=== PATIENT | female | born 1955 | race Caucasian/White ===

== ENCOUNTER 2017-12-08 07:35 | Outpatient (CLI) | payer OTHER ==
[~2017-12-08 07:35] MED LIST: ASPI-1265 PO; CYCL-1 PO; HYDR-569 PO; LISI-222 PO; MAGN100T6 PO; MULT-785 PO; MV-M1TAB19 PO; OMEG1CAP21 PO
[2017-12-08 08:13] LABS: ALANINE AMINOTRANSFERASE 65 U/L (12-78); ALBUMIN 3.8 G/DL (3.4-5.0); ALBUMIN/GLOBULIN RATIO 1.1 (1.1-1.5); ALKALINE PHOSPHATASE 51 IU/L (46-116); ANION GAP 6 (8-16); ASPARTATE AMINO TRANSFERASE 23 U/L (10-37); BILIRUBIN,TOTAL 0.5 MG/DL (0.1-1.0); BLOOD UREA NITROGEN 18 MG/DL (7-18); BUN/CREATININE RATIO 18.8 (6.6-38.0); CHLORIDE 106 MMOL/L (99-107); CHOL/HDL RATIO 3.9 (0.00-4.99); CHOLESTEROL 151 MG/DL (0-200); CREATININE 0.96 MG/DL (0.40-0.90); GLUCOSE 138 MG/DL (70-104); HDL CHOLESTEROL 39 MG/DL (35-60); LDL CHOLESTEROL 86 MG/DL (50-100); POTASSIUM 4.3 MMOL/L (3.5-5.1); SODIUM 140 MMOL/L (135-145); TOTAL CARBON DIOXIDE 27.9 MMOL/L (24-32); TOTAL PROTEIN 7.4 G/DL (6.4-8.2); TRIGLYCERIDES 169 MG/DL (20-135); eGFR 59 ML/MIN
== END 2017-12-08 23:59 | disposition home or self-care (01) ==
LOC: LAB 07:35
PROVIDERS: ATTEND Family Medicine
DX: I10 Essential (primary) hypertension (principal); E78.5 Hyperlipidemia, unspecified; R79.89 Other specified abnormal findings of blood chemistry
CPT/HCPCS: 36415; 80053; 80061; 83036

== ENCOUNTER 2018-02-22 07:26 | Outpatient (CLI) | payer OTHER | END 2018-02-22 23:59 | disposition home or self-care (01) | LOC: LAB 07:26 | PROVIDERS: ATTEND Nurse Practitioner Family | DX: R73.01 Impaired fasting glucose (principal) | CPT/HCPCS: 36415; 82947 ==

== ENCOUNTER 2018-10-24 09:01 | Emergency (ER) | payer OTHER ==
[~2018-10-24] VITALS: Ht 165.1 cm; Wt 79.5 kg
[~2018-10-24 09:01] MED LIST changes: +HYDR-4383 PO; -HYDR-569 PO
[2018-10-24] MEDS ORDERED: mag hydrox/Alum hydrox/simeth 30ml oral suspension PO ONE (09:20)
[2018-10-24] MEDS ORDERED: LIDOcaine Viscous 15ml cup PO ONE (09:20)
[2018-10-24] MEDS ORDERED: famotidine/PF 10 mg/ml inj IV ONE (09:20)
[2018-10-24] MEDS ORDERED: aspirin 325mg tablet PO ONE (09:20)
[2018-10-24 09:53] LABS: BASOPHILS % (AUTO) 0.6 % (0-1); EOSINOPHILS # (AUTO) 0.1 X10'3 (0-0.9); EOSINOPHILS % (AUTO) 0.9 % (0-6); HEMATOCRIT 43.6 % (35.0-45.0); HEMOGLOBIN 14.6 g/dl (12.0-16.0); LYMPHOCYTES # (AUTO) 2.3 X10'3 (1.1-4.8); LYMPHOCYTES % (AUTO) 30.5 % (21-51); MEAN CORPUSCULAR HGB CONC 33.4 % (33.0-36.5); MEAN PLATELET VOLUME 9.5 FL (7.4-10.4); MONOCYTES # (AUTO) 0.6 X10'3 (0-0.9); NEUTROPHILS # (AUTO) 4.7 X10'3 (1.8-7.7); PLATELET COUNT 190 X10'3 (140-440); RED BLOOD COUNT 4.55 X10'6 (4.20-5.60); WHITE BLOOD COUNT 7.7 X10'3 (4.5-11.0)
[2018-10-24 10:02] LABS: INR 1.3 INR; PARTIAL THROMBOPLASTIN TIME 27 SECONDS (22-32); PROTHROMBIN TIME 10.3 SECONDS (9.0-12.0)
[2018-10-24] MEDS ORDERED: iohexol 350MG/ML 100ml bottle IV ONE (10:02)
[2018-10-24 10:11] LABS: ALANINE AMINOTRANSFERASE 46 U/L (12-78); ALBUMIN 3.6 G/DL (3.4-5.0); ALKALINE PHOSPHATASE 51 IU/L (46-116); ANION GAP 11 (8-16); ASPARTATE AMINO TRANSFERASE 19 U/L (10-37); BILIRUBIN,TOTAL 0.5 MG/DL (0.1-1.0); BLOOD UREA NITROGEN 19 MG/DL (7-18); BUN/CREATININE RATIO 21.8 (6.6-38.0); CALCIUM 8.8 MG/DL (8.5-10.1); CHLORIDE 102 MMOL/L (99-107); CREATININE 0.87 MG/DL (0.40-0.90); GLUCOSE 137 MG/DL (70-104); LIPASE 315 U/L (73-393); SODIUM 138 MMOL/L (135-145); TOTAL CARBON DIOXIDE 24.6 MMOL/L (24-32); TOTAL PROTEIN 7.3 G/DL (6.4-8.2); eGFR 66 ML/MIN
[2018-10-24] MEDS ORDERED: ondansetron/PF 4mg/2ml inj IV ONE (10:40)
[2018-10-24] MEDS ORDERED: PANT20TA3 PO (11:07)
[2018-10-24] MEDS ORDERED: pantoprazole 40 MG vial IV ONE (11:10)
[2018-10-24 11:58] VITALS: BP 140/89
== END 2018-10-24 12:00 | disposition home or self-care (01) ==
LOC: ER 09:02
DX: R07.89 Other chest pain (principal); R10.13 Epigastric pain; R11.0 Nausea; I10 Essential (primary) hypertension; Z90.710 Acquired absence of both cervix and uterus; Z79.82 Long term (current) use of aspirin
CPT/HCPCS: 36415; 71045; 71275; 74174; 80053; 83690; 84484; 85025; 85610; 85730; 93005; 96374; 96375; 99284; C9113; J2405; J3490; Q9967

== ENCOUNTER 2018-12-28 09:25 | Day surgery (SDC) | payer OTHER ==
[~2018-12-28] VITALS: Ht 165.1 cm; Wt 77.3 kg
[~2018-12-28 09:25] MED LIST changes: +PANT20TA3 PO
[2018-12-28 09:37] VITALS: BP 142/84
[2018-12-28] MEDS ORDERED: MIDAZolam 5mg/5ml vial ONE (09:39)
[2018-12-28] MEDS ORDERED: fentaNYL/PF 50MCG/1 ML 2ML syringe ONE (09:39)
[2018-12-28] MEDS ORDERED: LIDOcaine Viscous 15ml cup ONE (09:39)
[2018-12-28] MEDS ORDERED: LISI-604 PO (09:40)
[2018-12-28] MEDS ORDERED: FLUO20CA39 PO (09:41)
[2018-12-28 10:10] VITALS: BP 148/75
[2018-12-28 10:20] VITALS: BP 136/85
[2018-12-28 10:30] VITALS: BP 129/83
[2018-12-28 10:40] VITALS: BP 140/86
== END 2018-12-28 10:45 | disposition home or self-care (01) ==
LOC: GI LAB 09:25
PROVIDERS: ATTEND Internal Medicine Gastroenterology
DX: K29.50 Unspecified chronic gastritis without bleeding (principal); K44.9 Diaphragmatic hernia without obstruction or gangrene; K22.10 Ulcer of esophagus without bleeding; K21.0 Gastro-esophageal reflux disease with esophagitis
CPT/HCPCS: 43239; J2250; J3010; J7030; 99152; A4620

== ENCOUNTER 2019-02-16 08:55 | Day surgery (SDC) | payer OTHER ==
[2019-02-13 15:33] LABS: ALBUMIN 3.9 G/DL (3.4-5.0); ALBUMIN/GLOBULIN RATIO 1.1 (1.1-1.5); ALKALINE PHOSPHATASE 63 IU/L (46-116); BLOOD UREA NITROGEN 22 MG/DL (7-18); BUN/CREATININE RATIO 24.7 (6.6-38.0); CALCIUM 9.3 MG/DL (8.5-10.1); CHLORIDE 101 MMOL/L (99-107); CREATININE 0.89 MG/DL (0.40-0.90); PRE OP ALT 56 U/L (30-65); PRE OP ANION GAP 9 (8-16); PRE OP BILIRUB, TOTAL 0.3 MG/DL (0.0-1.0); PRE OP SODIUM 139 MMOL/L (135-145); TOTAL CARBON DIOXIDE 29.4 MMOL/L (24-32); TOTAL PROTEIN 7.3 G/DL (6.4-8.2); eGFR 64 ML/MIN
[2019-02-13 15:38] LABS: PRE OP GLUCOSE 125 MG/DL (70-104); PRE OP POTASSIUM 4.3 MMOL/L (3.4-5.1)
[2019-02-13 15:43] LABS: BASOPHILS # (AUTO) 0.1 X10'3 (0-0.2); BASOPHILS % (AUTO) 0.9 % (0-1); EOSINOPHILS # (AUTO) 0.1 X10'3 (0-0.9); EOSINOPHILS % (AUTO) 1.6 % (0-6); LYMPHOCYTES % (AUTO) 27.7 % (21-51); MEAN CORPUSCULAR HEMOGLOBIN 33.2 PG (27.0-31.0); MEAN CORPUSCULAR HGB CONC 35.1 g/dL (33.0-36.5); MEAN CORPUSCULAR VOLUME 94.6 FL (78-98); MEAN PLATELET VOLUME 9.2 FL (7.4-10.4); MONOCYTES # (AUTO) 0.8 X10'3 (0-0.9); MONOCYTES % (AUTO) 11.3 % (2-12); NEUTROPHILS # (AUTO) 4.2 X10'3 (1.8-7.7); NEUTROPHILS % (AUTO) 58.5 % (42-75); PRE OP HEMATOCRIT 43.3 % (35.0-45.0); PRE OP HEMOGLOBIN 15.2 g/dL (12.0-16.0); PRE OP PLATELET COUNT 181 X10'3 (140-440); RED BLOOD COUNT 4.58 X10'6 (4.20-5.60); RED CELL DISTRIBUTION WIDTH 12.7 % (11.5-14.5)
[2019-02-13 16:06] LABS: PRE OP AST 19 U/L (10-37)
[2019-02-16] VITALS (8 sets, daily range): BP systolic 133–160; BP diastolic 72–96
[~2019-02-16] VITALS: Ht 165.1 cm; Wt 73.0 kg
[~2019-02-16 08:55] MED LIST changes: -ASPI-1265 PO; +ASPI-611 PO; +BUPIVAcaine/PF 2.5mg/ml (0.25%) 10ml vial ONE; -CYCL-1 PO; -HYDR-4383 PO; -LISI-222 PO; +LISI-604 PO; -MAGN100T6 PO; -PANT20TA3 PO; +ceFAZolin 1GM/D5W- ADD-VANTAGE 50 ML IV ONE; +famotidine 20mg tablet PO ONE; +ringers solution, lacted 1,000 ML IV SCH
[2019-02-16] MEDS ORDERED: LIDOcaine 0.5% (5mg/ml) 50ml vial ONE (10:01)
[2019-02-16] MEDS ORDERED: fentaNYL/PF 50MCG/1 ML 2ML syringe ONE (10:09)
[2019-02-16] MEDS ORDERED: midazolam 2 mg/2 ml injection ONE ×2 (10:09→10:27)
--- NOTE | 2019-02-16 10:50 | NUR ---
Received from OR via BED, accompanied by Anesthesiologist DR SAVAGE and report given by Anesthesiolgist. PATIENT A&OX4, DENIES PAIN, V/S WNL, NEUROVASCULAR CHECKS INTACT, 20G PIV RUE, SCD ON, DRESSING TO LEFT AND RIGHT WRIST CDI ELEVATED WITH ICEBAG APPLIED.
--- NOTE | 2019-02-16 11:17 | NUR ---
WRONG TIME, CORRECT ARRIVAL TIME IS 1050
--- NOTE | 2019-02-16 11:45 | NUR ---
PATIENT A&OX4, DENIES PAIN, V/S WNL, NEUROVASCULAR CHECKS INTACT, 20G PIV LUE D/C, SCD OFF, DRESSING TO RIGHT AND LEFT WRIST CDI ELEVATED WITH ICEBAG APPLIED. I HAVE REVIEWED D/C INSTRUCTIONS WITH PATIENT AND FAMILY AND THEY HAVE VERBALIZED UNDERSTANDING. PATIENT D/C HOME WITH ALL BELONGINGS AND FAMILY GAVE TRANSPORT HOME.
== END 2019-02-16 11:45 | disposition home or self-care (01) ==
LOC: PAS 08:55
PROVIDERS: ATTEND Orthopaedic Surgery Hand Surgery
DX: G56.03 Carpal tunnel syndrome, bilateral upper limbs (principal); M65.332 Trigger finger, left middle finger; I10 Essential (primary) hypertension; Z79.899 Other long term (current) drug therapy; Z90.710 Acquired absence of both cervix and uterus; Z82.49 Family history of ischemic heart disease and other diseases of the circulatory system; Z80.8 Family history of malignant neoplasm of other organs or systems
CPT/HCPCS: 26055; 29848; 36415; 80053; 85025; J0690; J2001; J2250; J3010; J3490; A6449; A7000; J7120

== ENCOUNTER 2020-01-09 09:30 | Outpatient (CLI) | payer OTHER ==
[~2020-01-09 09:30] MED LIST changes: -BUPIVAcaine/PF 2.5mg/ml (0.25%) 10ml vial ONE; -ceFAZolin 1GM/D5W- ADD-VANTAGE 50 ML IV ONE; -famotidine 20mg tablet PO ONE; -ringers solution, lacted 1,000 ML IV SCH
[2020-01-09 10:50] LABS: ALANINE AMINOTRANSFERASE 65 U/L (12-78); ALBUMIN 3.9 G/DL (3.4-5.0); ALBUMIN/GLOBULIN RATIO 1.1 (1.1-1.5); ALKALINE PHOSPHATASE 47 IU/L (46-116); ANION GAP 7 (8-16); ASPARTATE AMINO TRANSFERASE 30 U/L (10-37); BILIRUBIN,TOTAL 0.9 MG/DL (0.1-1.0); BLOOD UREA NITROGEN 16 MG/DL (7-18); BUN/CREATININE RATIO 17.2 (6.6-38.0); CALCIUM 9.3 MG/DL (8.5-10.1); CHLORIDE 103 MMOL/L (99-107); CHOL/HDL RATIO 3.6 (0.00-4.99); CHOLESTEROL 153 MG/DL (0-200); CREATININE 0.93 MG/DL (0.40-0.90); GLUCOSE 152 MG/DL (70-104); HDL CHOLESTEROL 42 MG/DL (35-60); LDL CHOLESTEROL 90 MG/DL (50-100); POTASSIUM 4.4 MMOL/L (3.5-5.1); SODIUM 137 MMOL/L (135-145); TOTAL CARBON DIOXIDE 27.1 MMOL/L (24-32); TOTAL PROTEIN 7.5 G/DL (6.4-8.2); TRIGLYCERIDES 180 MG/DL (20-135); eGFR 61 ML/MIN
[2020-01-09 11:43] LABS: HEMOGLOBIN A1C 6.8 % (4.5-6.2)
== END 2020-01-09 23:59 | disposition home or self-care (01) ==
LOC: LAB 09:30
PROVIDERS: ATTEND Nurse Practitioner Family
DX: I10 Essential (primary) hypertension (principal); R73.01 Impaired fasting glucose; R53.83 Other fatigue
CPT/HCPCS: 36415; 80053; 80061; 83036; 84443

== ENCOUNTER 2020-02-01 16:08 | Emergency (ER) | payer OTHER ==
[~2020-02-01] VITALS: Ht 165.1 cm; Wt 79.5 kg
[2020-02-01] MEDS ORDERED: dexamethasone 4mg tablet PO ONE (16:35)
[2020-02-01] MEDS ORDERED: ACYC-202 PO (16:51)
[2020-02-01] MEDS ORDERED: PRED20TA PO (16:51)
[2020-02-01 17:34] VITALS: BP 138/70
== END 2020-02-01 17:39 | disposition home or self-care (01) ==
LOC: EEVIPCON 16:08 → ER 16:08
DX: G51.0 Bell's palsy (principal); R51 Headache; I10 Essential (primary) hypertension; Z90.710 Acquired absence of both cervix and uterus; Z72.89 Other problems related to lifestyle; Z79.899 Other long term (current) drug therapy
CPT/HCPCS: 70450; 82948; 93005; 99284

== ENCOUNTER 2020-02-03 06:48 | Emergency (ER) | payer OTHER ==
[~2020-02-03] VITALS: Ht 165.1 cm; Wt 74.0 kg
[~2020-02-03 06:48] MED LIST changes: +ACYC-202 PO; +PRED20TA PO
[2020-02-03 06:51] VITALS: BP 139/79
[2020-02-03] MEDS ORDERED: amox tr/potassium clavulanate 875/125mg TAB PO ONE (07:20)
[2020-02-03] MEDS ORDERED: AMOX-117 PO (09:07)
== END 2020-02-03 09:16 | disposition home or self-care (01) ==
LOC: ER 06:49
DX: G51.0 Bell's palsy (principal); H66.92 Otitis media, unspecified, left ear; I10 Essential (primary) hypertension; Z90.710 Acquired absence of both cervix and uterus; Z72.89 Other problems related to lifestyle; Z79.82 Long term (current) use of aspirin; Z79.899 Other long term (current) drug therapy
CPT/HCPCS: 70480; 99284

== ENCOUNTER 2020-02-08 15:44 | Emergency (ER) | payer OTHER ==
[~2020-02-08] VITALS: Ht 165.1 cm; Wt 72.3 kg
[~2020-02-08 15:44] MED LIST changes: +AMOX-117 PO
[2020-02-08 15:45] VITALS: BP 174/107
[2020-02-08] MEDS ORDERED: HYDR-4383 PO (16:27)
[2020-02-08] MEDS ORDERED: GABA-530 PO (16:27)
== END 2020-02-08 16:45 | disposition home or self-care (01) ==
LOC: ER 15:45
DX: H92.02 Otalgia, left ear (principal); R20.0 Anesthesia of skin; I10 Essential (primary) hypertension; Z90.710 Acquired absence of both cervix and uterus; Z72.89 Other problems related to lifestyle; Z79.82 Long term (current) use of aspirin; Z79.899 Other long term (current) drug therapy
CPT/HCPCS: 99283

== ENCOUNTER 2020-04-23 11:22 | Outpatient (CLI) | payer OTHER ==
[~2020-04-23 11:22] MED LIST changes: -ACYC-202 PO; -AMOX-117 PO; +GABA-530 PO; +HYDR-4383 PO; -PRED20TA PO
[2020-04-23] MEDS ORDERED: GADOTERATE MEGLUMINE 7.5 MMOL/15 ML VIAL IV ONE (12:25)
== END 2020-04-23 23:59 | disposition home or self-care (01) ==
LOC: RAD 11:22
PROVIDERS: ATTEND Otolaryngology
DX: G31.9 Degenerative disease of nervous system, unspecified (principal); I67.82 Cerebral ischemia
CPT/HCPCS: 70553; A9575

== ENCOUNTER 2020-07-30 06:23 | Outpatient (CLI) | payer BC ==
[2020-07-30 07:55] LABS: ALANINE AMINOTRANSFERASE 54 U/L (12-78); ALBUMIN 3.9 G/DL (3.4-5.0); ALBUMIN/GLOBULIN RATIO 1.1 (1.1-1.5); ALKALINE PHOSPHATASE 47 IU/L (46-116); ANION GAP 8 (8-16); ASPARTATE AMINO TRANSFERASE 23 U/L (10-37); BILIRUBIN,TOTAL 0.6 MG/DL (0.1-1.0); BLOOD UREA NITROGEN 17 MG/DL (7-18); BUN/CREATININE RATIO 18.1 (6.6-38.0); CALCIUM 9.3 MG/DL (8.5-10.1); CHLORIDE 108 MMOL/L (99-107); CHOL/HDL RATIO 3.9 (0.00-4.99); CHOLESTEROL 175 MG/DL (0-200); CREATININE 0.94 MG/DL (0.40-0.90); GLUCOSE 139 MG/DL (70-104); HDL CHOLESTEROL 45 MG/DL (35-60); LDL CHOLESTEROL 107 MG/DL (50-100); POTASSIUM 4.4 MMOL/L (3.5-5.1); SODIUM 144 MMOL/L (135-145); TOTAL CARBON DIOXIDE 28.2 MMOL/L (24-32); TOTAL PROTEIN 7.5 G/DL (6.4-8.2); TRIGLYCERIDES 167 MG/DL (20-135); eGFR 60 ML/MIN
[2020-07-30 08:19] LABS: HEMOGLOBIN A1C 6.5 % (4.5-6.2)
== END 2020-07-30 23:59 | disposition home or self-care (01) ==
LOC: LAB 06:23
PROVIDERS: ATTEND Nurse Practitioner Family
DX: R73.01 Impaired fasting glucose (principal); G25.2 Other specified forms of tremor; E53.8 Deficiency of other specified B group vitamins
CPT/HCPCS: 36415; 80053; 80061; 82607; 83036

== ENCOUNTER 2020-08-06 13:08 | Emergency (ER) | payer BC, MEDICARE ==
[~2020-08-06] VITALS: Ht 165.1 cm; Wt 73.6 kg
[2020-08-06 15:28] LABS: BASOPHILS # (AUTO) 0.1 X10'3 (0-0.2); BASOPHILS % (AUTO) 0.5 % (0-1); EOSINOPHILS % (AUTO) 0.3 % (0-6); HEMATOCRIT 42.2 % (35.0-45.0); HEMOGLOBIN 14.6 g/dl (12.0-16.0); LYMPHOCYTES # (AUTO) 1.9 X10'3 (1.1-4.8); LYMPHOCYTES % (AUTO) 15.7 % (21-51); MEAN CORPUSCULAR HEMOGLOBIN 32.8 PG (27.0-31.0); MEAN CORPUSCULAR HGB CONC 34.5 g/dL (33.0-36.5); MEAN CORPUSCULAR VOLUME 94.9 FL (78-98); MEAN PLATELET VOLUME 9.3 FL (7.4-10.4); MONOCYTES # (AUTO) 1.1 X10'3 (0-0.9); NEUTROPHILS # (AUTO) 8.8 X10'3 (1.8-7.7); NEUTROPHILS % (AUTO) 74.5 % (42-75); PLATELET COUNT 184 X10'3 (140-440); RED BLOOD COUNT 4.45 X10'6 (4.20-5.60); RED CELL DISTRIBUTION WIDTH 12.5 % (11.5-14.5); WHITE BLOOD COUNT 11.8 X10'3 (4.5-11.0)
[2020-08-06 15:45] LABS: ALANINE AMINOTRANSFERASE 45 U/L (12-78); ALBUMIN 3.7 G/DL (3.4-5.0); ALBUMIN/GLOBULIN RATIO 1.1 (1.1-1.5); ALKALINE PHOSPHATASE 47 IU/L (46-116); ANION GAP 11 (8-16); ASPARTATE AMINO TRANSFERASE 17 U/L (10-37); BILIRUBIN,TOTAL 0.5 MG/DL (0.1-1.0); BLOOD UREA NITROGEN 17 MG/DL (7-18); BUN/CREATININE RATIO 19.3 (6.6-38.0); CALCIUM 9.4 MG/DL (8.5-10.1); CHLORIDE 103 MMOL/L (99-107); CREATININE 0.88 MG/DL (0.40-0.90); GLUCOSE 127 MG/DL (70-104); POTASSIUM 3.8 MMOL/L (3.5-5.1); SODIUM 141 MMOL/L (135-145); TOTAL CARBON DIOXIDE 27.5 MMOL/L (24-32); TOTAL PROTEIN 7.2 G/DL (6.4-8.2); eGFR 64 ML/MIN
[2020-08-06 15:49] LABS: D-DIMER 4.31 MG/L FEU (0-0.50)
[2020-08-06] MEDS ORDERED: iohexol 350MG/ML 100ml bottle IV ONE (16:17)
[2020-08-06] MEDS ORDERED: azithromycin 250mg tablet PO ONE (17:40)
[2020-08-06] MEDS ORDERED: AZIT-63 PO (19:12)
[2020-08-06 19:34] VITALS: BP 122/94
[2020-08-07] MEDS ORDERED: AMOX-117 PO (20:42)
== END 2020-08-06 19:37 | disposition home or self-care (01) ==
LOC: EEVIPCON 13:09 → ER 13:09
DX: R42 Dizziness and giddiness (principal); R53.1 Weakness; Z20.828 Contact with and (suspected) exposure to other viral communicable diseases; R55 Syncope and collapse; I10 Essential (primary) hypertension; Z90.710 Acquired absence of both cervix and uterus; Z72.89 Other problems related to lifestyle; Z79.82 Long term (current) use of aspirin; Z79.2 Long term (current) use of antibiotics; Z79.899 Other long term (current) drug therapy
CPT/HCPCS: 36415; 71045; 71275; 80053; 84484; 85025; 85379; 87635; 93005; 99285; C9803; Q9967

== ENCOUNTER 2020-08-07 16:30 | Emergency (ER) | payer BC, MEDICARE ==
[~2020-08-07] VITALS: Ht 165.1 cm; Wt 73.6 kg
[~2020-08-07 16:30] MED LIST changes: +AZIT-63 PO
[2020-08-07] MEDS ORDERED: normal saline 1000ML IV soln IV ONE (16:55)
[2020-08-07 17:31] LABS: BASOPHILS # (AUTO) 0.1 X10'3 (0-0.2); BASOPHILS % (AUTO) 0.6 % (0-1); EOSINOPHILS # (AUTO) 0.1 X10'3 (0-0.9); EOSINOPHILS % (AUTO) 0.8 % (0-6); HEMATOCRIT 46.2 % (35.0-45.0); HEMOGLOBIN 15.6 g/dl (12.0-16.0); LYMPHOCYTES # (AUTO) 2.9 X10'3 (1.1-4.8); LYMPHOCYTES % (AUTO) 24.8 % (21-51); MEAN CORPUSCULAR HGB CONC 33.8 g/dL (33.0-36.5); MEAN CORPUSCULAR VOLUME 94.5 FL (78-98); MONOCYTES # (AUTO) 0.9 X10'3 (0-0.9); MONOCYTES % (AUTO) 7.6 % (2-12); NEUTROPHILS # (AUTO) 7.6 X10'3 (1.8-7.7); NEUTROPHILS % (AUTO) 66.2 % (42-75); PLATELET COUNT 207 X10'3 (140-440); RED BLOOD COUNT 4.89 X10'6 (4.20-5.60); RED CELL DISTRIBUTION WIDTH 12.6 % (11.5-14.5); WHITE BLOOD COUNT 11.5 X10'3 (4.5-11.0)
[2020-08-07 17:34] LABS: CLARITY,URINE SLIGHTLY CLOUDY (Clear); COLOR,URINE YELLOW (Yellow); GLUCOSE, URINE NEGATIVE (Neg); KETONES,URINE NEGATIVE (Neg); LEUKOCYTE ESTERASE ,URINE NEGATIVE (Neg); NITRITES, URINE NEGATIVE (Neg); OCCULT BLOOD,URINE NEGATIVE (Neg); PROTEIN,URINE NEGATIVE (Neg); UROBILINOGEN,URINE 0.2 E.U/dL (0.2-1.0)
[2020-08-07 17:37] LABS: UA COLLECTION TYPE CLN CATCH MIDSTREAM
[2020-08-07 17:39] LABS: MUCUS STRANDS MANY /LPF (Neg); SQUAMOUS EPITHELIAL CELL,UR MANY /LPF (FEW)
[2020-08-07 17:40] LABS: BACTERIA,URINE 1+ /HPF (Neg); RBC,URINE 0-2 /HPF (0-2)
[2020-08-07 17:41] LABS: STARCH,URINE FEW /HPF (NEGATIVE); TRANSITIONAL EPI CELLS,URINE FEW /HPF; WBC,URINE 0-4 /HPF (0-4)
[2020-08-07 17:44] LABS: ALANINE AMINOTRANSFERASE 45 U/L (12-78); ALBUMIN/GLOBULIN RATIO 1.1 (1.1-1.5); ALKALINE PHOSPHATASE 56 IU/L (46-116); ANION GAP 10 (8-16); ASPARTATE AMINO TRANSFERASE 32 U/L (10-37); BILIRUBIN,TOTAL 0.9 MG/DL (0.1-1.0); BLOOD UREA NITROGEN 15 MG/DL (7-18); BUN/CREATININE RATIO 14.4 (6.6-38.0); CALCIUM 9.5 MG/DL (8.5-10.1); CHLORIDE 99 MMOL/L (99-107); CREATININE 1.04 MG/DL (0.40-0.90); GLUCOSE 125 MG/DL (70-104); POTASSIUM 3.6 MMOL/L (3.5-5.1); SODIUM 136 MMOL/L (135-145); TOTAL CARBON DIOXIDE 27.4 MMOL/L (24-32); TOTAL PROTEIN 7.8 G/DL (6.4-8.2); eGFR 53 ML/MIN
[2020-08-07] MEDS ORDERED: AMOX-117 PO (20:42)
[2020-08-07] MEDS ORDERED: amox tr/potassium clavulanate 875/125mg TAB PO ONE (20:45)
[2020-08-07 21:00] VITALS: BP 151/88
[2020-08-08 08:27] LABS: OCCULT BLOOD STOOL POSITIVE (Neg)
== END 2020-08-07 21:05 | disposition home or self-care (01) ==
LOC: ER 16:32
DX: J18.9 Pneumonia, unspecified organism (principal); I10 Essential (primary) hypertension; Z79.899 Other long term (current) drug therapy; Z90.49 Acquired absence of other specified parts of digestive tract
CPT/HCPCS: 36415; 71045; 74176; 80053; 81001; 82272; 83605; 84145; 85025; 85610; 86885; 86900; 86901; 87040; 87635; 93005; 96360; 99285; C9803; J7030

== ENCOUNTER 2021-01-09 07:33 | Outpatient (CLI) | payer BC, MEDICARE ==
[~2021-01-09 07:33] MED LIST changes: -AZIT-63 PO; -LISI-604 PO; +LISI-790 PO
[2021-01-09 10:05] LABS: ALANINE AMINOTRANSFERASE 39 U/L (12-78); ALBUMIN/GLOBULIN RATIO 1.1 (1.1-1.5); ALKALINE PHOSPHATASE 49 IU/L (46-116); ANION GAP 9 (8-16); ASPARTATE AMINO TRANSFERASE 17 U/L (10-37); BILIRUBIN,TOTAL 0.7 MG/DL (0.1-1.0); BLOOD UREA NITROGEN 18 MG/DL (7-18); BUN/CREATININE RATIO 21.7 (6.6-38.0); CALCIUM 9.5 MG/DL (8.5-10.1); CHLORIDE 105 MMOL/L (99-107); CREATININE 0.83 MG/DL (0.40-0.90); GLUCOSE 117 MG/DL (70-104); POTASSIUM 4.5 MMOL/L (3.5-5.1); SODIUM 141 MMOL/L (135-145); TOTAL CARBON DIOXIDE 27.1 MMOL/L (24-32); TOTAL PROTEIN 7.8 G/DL (6.4-8.2); eGFR 69 ML/MIN
[2021-01-09 13:19] LABS: HEMOGLOBIN A1C 5.8 % (4.5-6.2)
== END 2021-01-09 23:59 | disposition home or self-care (01) ==
LOC: LAB 07:33
PROVIDERS: ATTEND Nurse Practitioner Family
DX: D51.9 Vitamin B12 deficiency anemia, unspecified (principal); R73.01 Impaired fasting glucose
CPT/HCPCS: 36415; 80053; 82607; 83036

== ENCOUNTER 2021-08-17 09:56 | Outpatient (CLI) | payer BC, MEDICARE ==
[~2021-08-17 09:56] MED LIST changes: -LISI-790 PO; +LISI5TAB22 PO
[2021-08-17 10:46] LABS: BASOPHILS # (AUTO) 0.1 X10'3 (0-0.2); BASOPHILS % (AUTO) 1.1 % (0-1); EOSINOPHILS # (AUTO) 0.1 X10'3 (0-0.9); EOSINOPHILS % (AUTO) 1.5 % (0-6); HEMATOCRIT 42.8 % (35.0-45.0); HEMOGLOBIN 14.8 g/dl (12.0-16.0); LYMPHOCYTES # (AUTO) 2.3 X10'3 (1.1-4.8); LYMPHOCYTES % (AUTO) 45.7 % (21-51); MEAN CORPUSCULAR HEMOGLOBIN 31.9 PG (27.0-31.0); MEAN CORPUSCULAR HGB CONC 34.6 g/dL (33.0-36.5); MEAN CORPUSCULAR VOLUME 92.2 FL (78-98); MEAN PLATELET VOLUME 8.8 FL (7.4-10.4); MONOCYTES # (AUTO) 0.4 X10'3 (0-0.9); MONOCYTES % (AUTO) 8.9 % (2-12); NEUTROPHILS # (AUTO) 2.1 X10'3 (1.8-7.7); NEUTROPHILS % (AUTO) 42.8 % (42-75); PLATELET COUNT 183 X10'3 (140-440); RED BLOOD COUNT 4.64 X10'6 (4.20-5.60); RED CELL DISTRIBUTION WIDTH 13.7 % (11.5-14.5); WHITE BLOOD COUNT 4.9 X10'3 (4.5-11.0)
[2021-08-17 11:17] LABS: HEMOGLOBIN A1C 6.8 % (4.5-6.2)
[2021-08-17 11:24] LABS: ALANINE AMINOTRANSFERASE 53 U/L (12-78); ALBUMIN 3.9 G/DL (3.4-5.0); ALKALINE PHOSPHATASE 54 IU/L (46-116); ANION GAP 9 (8-16); ASPARTATE AMINO TRANSFERASE 26 U/L (10-37); BILIRUBIN,TOTAL 0.4 MG/DL (0.1-1.0); BLOOD UREA NITROGEN 19 MG/DL (7-18); BUN/CREATININE RATIO 21.6 (6.6-38.0); CALCIUM 9.2 MG/DL (8.5-10.1); CHLORIDE 105 MMOL/L (99-107); CHOL/HDL RATIO 3.9 (0.00-4.99); CHOLESTEROL 170 MG/DL (0-200); CREATININE 0.88 MG/DL (0.40-0.90); GLUCOSE 124 MG/DL (70-104); HDL CHOLESTEROL 44 MG/DL (35-60); LDL CHOLESTEROL 94 MG/DL (50-100); POTASSIUM 4.6 MMOL/L (3.5-5.1); SODIUM 141 MMOL/L (135-145); TOTAL CARBON DIOXIDE 27.1 MMOL/L (24-32); TOTAL PROTEIN 7.7 G/DL (6.4-8.2); TRIGLYCERIDES 174 MG/DL (20-135); eGFR 64 ML/MIN
== END 2021-08-17 23:59 | disposition home or self-care (01) ==
LOC: LAB 09:56
PROVIDERS: ATTEND Nurse Practitioner Family
DX: I10 Essential (primary) hypertension (principal); R53.83 Other fatigue; E53.8 Deficiency of other specified B group vitamins
CPT/HCPCS: 36415; 80053; 80061; 82607; 83036; 84443; 85025

== ENCOUNTER 2022-01-09 08:25 | Inpatient (IN) | payer BC, MEDICARE ==
[~2022-01-09] VITALS: Ht 162.6 cm; Wt 74.5 kg
[2022-01-09 09:33] LABS: BASOPHILS # (AUTO) 0.1 X10'3 (0-0.2); EOSINOPHILS # (AUTO) 0.1 X10'3 (0-0.9); EOSINOPHILS % (AUTO) 1.4 % (0-6); HEMATOCRIT 43.3 % (35.0-45.0); LYMPHOCYTES # (AUTO) 1.9 X10'3 (1.1-4.8); MEAN CORPUSCULAR HEMOGLOBIN 32.5 PG (27.0-31.0); MEAN CORPUSCULAR HGB CONC 34.7 g/dL (33.0-36.5); MEAN CORPUSCULAR VOLUME 93.9 FL (78-98); MEAN PLATELET VOLUME 8.5 FL (7.4-10.4); MONOCYTES # (AUTO) 0.6 X10'3 (0-0.9); MONOCYTES % (AUTO) 9.3 % (2-12); NEUTROPHILS # (AUTO) 3.5 X10'3 (1.8-7.7); NEUTROPHILS % (AUTO) 57.3 % (42-75); PLATELET COUNT 219 X10'3 (140-440); RED BLOOD COUNT 4.62 X10'6 (4.20-5.60); RED CELL DISTRIBUTION WIDTH 12.5 % (11.5-14.5); WHITE BLOOD COUNT 6.1 X10'3 (4.5-11.0)
[2022-01-09 09:46] LABS: ALANINE AMINOTRANSFERASE 48 U/L (12-78); ALBUMIN 3.7 G/DL (3.4-5.0); ALKALINE PHOSPHATASE 50 IU/L (46-116); ANION GAP 11 (8-16); ASPARTATE AMINO TRANSFERASE 22 U/L (10-37); BILIRUBIN,TOTAL 0.5 MG/DL (0.1-1.0); BLOOD UREA NITROGEN 16 MG/DL (7-18); BUN/CREATININE RATIO 19.8 (6.6-38.0); CALCIUM 9.2 MG/DL (8.5-10.1); CHLORIDE 103 MMOL/L (99-107); CREATININE 0.81 MG/DL (0.40-0.90); GLUCOSE 141 MG/DL (70-104); POTASSIUM 3.8 MMOL/L (3.5-5.1); SODIUM 140 MMOL/L (135-145); TOTAL CARBON DIOXIDE 25.7 MMOL/L (24-32); TOTAL PROTEIN 7.4 G/DL (6.4-8.2); eGFR 71 ML/MIN
[2022-01-09] MEDS ORDERED: dexamethasone sod phosphate 10mg/ml inj IV STA (10:00)
[2022-01-09] MEDS ORDERED: CefTRIAXone 2gm/NS 100ml IVPB 100 ML IV ONE (10:00)
[2022-01-09] MEDS ORDERED: magnesium 4gm in 100ml NS 100 ML IV PRN (10:05)
[2022-01-09] MEDS ORDERED: magnesium Cl slow-release 64mg tablet PO PRN (10:05)
[2022-01-09] MEDS ORDERED: ondansetron/PF 4mg/2ml inj IV PRN (10:05)
[2022-01-09] MEDS ORDERED: acetaminophen 325mg tablet PO PRN (10:05)
[2022-01-09] MEDS ORDERED: magnesium 2GM in 50ml NS 50 ML IV PRN (10:05)
[2022-01-09] MEDS ORDERED: benzonatate 100mg capsule PO PRN (10:05)
[2022-01-09] MEDS ORDERED: potassium Cl 20 mEq SR tablet PO PRN ×2 (10:05)
[2022-01-09] MEDS ORDERED: magnesium hydroxide 30ml (MOM) UD suspension PO PRN (10:05)
[2022-01-09] MEDS ORDERED: morphine 2 MG/ML inj. syringe IV PRN (10:05)
[2022-01-09] MEDS ORDERED: mag hydrox/Alum hydrox/simeth 30ml oral suspension PO PRN (10:05)
[2022-01-09] MEDS ORDERED: potassium CL 10mEq/100ml bag 100 ML IV PRN (10:05)
[2022-01-09] MEDS ORDERED: HYDROcodone/acetaminophen 5mg/325mg tablet PO PRN (10:05)
[2022-01-09] MEDS ORDERED: DOXYCYCLINE 100MG CAPSULE PO STA (10:10)
[2022-01-09 11:00] LABS: MAGNESIUM 2.1 MG/DL (1.5-2.4)
--- NOTE | 2022-01-09 13:34 | NUR ---
pt resting on gurney in no acute distress at this time. updates on plan of care. will continue to monitor
[2022-01-09] MEDS: K and/or MAG REPLACEMENT MC SCH (20:00)
[2022-01-09] MEDS: docusate sod 100mg capsule PO SCH (20:00)
[2022-01-09 21:30] VITALS: BP 144/82
--- NOTE | 2022-01-10 00:57 | NUR ---
pt admitted to floor around 2100 from ED via wheelchair. pt ambulatory to bed. Admitted for cough and chest pain. CXR confirming RML PNA. received Rocephin in ED. awaiting echo results. ?possible stress test tomorrow. A&Ox4. VSS. pt states hx HTN, GI bleed x2 &[place] syndrome with left facial paralysis. s/p multiple facial surgeries. most recent 3 weeks ago for lower lid lift. other surgical hx of jose m carpal tunnel and cataract surgery. pt denies any chest pain at this time. states mild chest pain with coughing. currently cough mild/non-productive. lungs clear/dim throughout. pt states possible stress test in morning. no order placed but pt aware no caffeine for now and NPO after MN just in case. pt resting comfortably in bed. independent to bathroom. denies any needs at this time. frequent rounding. wctm
[2022-01-10 02:30] VITALS: BP 131/61
[2022-01-10 06:00] VITALS: BP 139/77
--- NOTE | 2022-01-10 06:44 | NUR ---
Patient in room PCU 3023. I have received report from Cora SANABRIA and had the opportunity to ask questions and assume patient care.
[2022-01-10 07:16] LABS: ALANINE AMINOTRANSFERASE 43 U/L (12-78); ALBUMIN 3.5 G/DL (3.4-5.0); ALKALINE PHOSPHATASE 41 IU/L (46-116); ANION GAP 10 (8-16); ASPARTATE AMINO TRANSFERASE 18 U/L (10-37); BILIRUBIN,TOTAL 0.4 MG/DL (0.1-1.0); BLOOD UREA NITROGEN 18 MG/DL (7-18); BUN/CREATININE RATIO 25.7 (6.6-38.0); CALCIUM 9.4 MG/DL (8.5-10.1); CHLORIDE 106 MMOL/L (99-107); CHOL/HDL RATIO 3.1 (0.00-4.99); CHOLESTEROL 135 MG/DL (0-200); GLUCOSE 124 MG/DL (70-104); HDL CHOLESTEROL 44 MG/DL (35-60); LDL CHOLESTEROL 76 MG/DL (50-100); MAGNESIUM 1.9 MG/DL (1.5-2.4); POTASSIUM 4.2 MMOL/L (3.5-5.1); SODIUM 143 MMOL/L (135-145); TOTAL CARBON DIOXIDE 26.8 MMOL/L (24-32); TOTAL PROTEIN 6.9 G/DL (6.4-8.2); TRIGLYCERIDES 120 MG/DL (20-135); eGFR 84 ML/MIN
[2022-01-10 07:22] LABS: BASOPHILS % (AUTO) 0.5 % (0-1); EOSINOPHILS # (AUTO) 0.1 X10'3 (0-0.9); EOSINOPHILS % (AUTO) 0.6 % (0-6); HEMATOCRIT 41.8 % (35.0-45.0); HEMOGLOBIN 14.5 g/dl (12.0-16.0); LYMPHOCYTES # (AUTO) 2.5 X10'3 (1.1-4.8); LYMPHOCYTES % (AUTO) 29.9 % (21-51); MEAN CORPUSCULAR HEMOGLOBIN 32.4 PG (27.0-31.0); MEAN CORPUSCULAR HGB CONC 34.7 g/dL (33.0-36.5); MEAN CORPUSCULAR VOLUME 93.4 FL (78-98); MEAN PLATELET VOLUME 8.9 FL (7.4-10.4); MONOCYTES # (AUTO) 0.6 X10'3 (0-0.9); MONOCYTES % (AUTO) 7.1 % (2-12); NEUTROPHILS # (AUTO) 5.2 X10'3 (1.8-7.7); NEUTROPHILS % (AUTO) 61.9 % (42-75); PLATELET COUNT 230 X10'3 (140-440); RED BLOOD COUNT 4.48 X10'6 (4.20-5.60); RED CELL DISTRIBUTION WIDTH 12.5 % (11.5-14.5); WHITE BLOOD COUNT 8.5 X10'3 (4.5-11.0)
[2022-01-10] MEDS: docusate sod 100mg capsule PO SCH ×2 (08:00→20:00)
[2022-01-10] MEDS: K and/or MAG REPLACEMENT MC SCH ×2 (08:00→20:00)
[2022-01-10] MEDS ORDERED: non-formulary drug (Mv-Mn/Iron/Fa/Herbal Cmplx#190 (Vitamin D3 Complete Caplet) 1 EACH) PO SCH (08:00)
[2022-01-10] MEDS ORDERED: nitroGLYCERIN 0.4mg SUBLingual tab SL PRN (09:00)
[2022-01-10] MEDS ORDERED: metoprolol tartrate 1mg/ml inj IV PRN (09:00)
[2022-01-10] MEDS ORDERED: regadenoson 0.4mg/5ml syringe IV PRN (09:00)
[2022-01-10] MEDS ORDERED: aminophylline 500mg/20ml vial IV PRN (09:00)
[2022-01-10] MEDS: cefTRIAXone 1g/NS 100ml IVPB 100 ML IV SCH (09:12)
[2022-01-10] MEDS: enoxaparin 40mg/0.4ml syringe SUBCUT SCH (09:17)
[2022-01-10] MEDS: omega-3 acid ethyl esters 1GM capsule PO SCH (09:20)
[2022-01-10] MEDS: lisinopril 10 MG tablet PO SCH (09:21)
[2022-01-10] MEDS: multivitamins, therapeutics tablet PO SCH (09:28)
[2022-01-10 11:00] VITALS: BP 133/74
[2022-01-10 15:00] VITALS: BP 115/69
[2022-01-10 18:00] VITALS: BP 128/72
--- NOTE | 2022-01-10 18:16 | NUR ---
Problems reprioritized. Patient report given, questions answered & plan of care reviewed with Farheen SANABRIA.
[2022-01-10 22:00] VITALS: BP 105/68
[2022-01-11] VITALS (10 sets, daily range): BP systolic 101–130; BP diastolic 62–83
[2022-01-11 06:51] LABS: BASOPHILS # (AUTO) 0.1 X10'3 (0-0.2); BASOPHILS % (AUTO) 1.2 % (0-1); EOSINOPHILS # (AUTO) 0.1 X10'3 (0-0.9); EOSINOPHILS % (AUTO) 2.3 % (0-6); HEMATOCRIT 45.4 % (35.0-45.0); HEMOGLOBIN 15.1 g/dl (12.0-16.0); LYMPHOCYTES # (AUTO) 2.6 X10'3 (1.1-4.8); LYMPHOCYTES % (AUTO) 43.5 % (21-51); MEAN CORPUSCULAR HEMOGLOBIN 31.4 PG (27.0-31.0); MEAN CORPUSCULAR HGB CONC 33.3 g/dL (33.0-36.5); MEAN CORPUSCULAR VOLUME 94.1 FL (78-98); MEAN PLATELET VOLUME 8.7 FL (7.4-10.4); MONOCYTES # (AUTO) 0.6 X10'3 (0-0.9); MONOCYTES % (AUTO) 9.5 % (2-12); NEUTROPHILS # (AUTO) 2.6 X10'3 (1.8-7.7); NEUTROPHILS % (AUTO) 43.5 % (42-75); PLATELET COUNT 245 X10'3 (140-440); RED BLOOD COUNT 4.82 X10'6 (4.20-5.60); RED CELL DISTRIBUTION WIDTH 12.6 % (11.5-14.5)
[2022-01-11 07:23] LABS: ALANINE AMINOTRANSFERASE 58 U/L (12-78); ALBUMIN 3.7 G/DL (3.4-5.0); ALKALINE PHOSPHATASE 48 IU/L (46-116); ANION GAP 10 (8-16); ASPARTATE AMINO TRANSFERASE 30 U/L (10-37); BILIRUBIN,TOTAL 0.5 MG/DL (0.1-1.0); BLOOD UREA NITROGEN 20 MG/DL (7-18); CALCIUM 9.4 MG/DL (8.5-10.1); CHLORIDE 106 MMOL/L (99-107); GLUCOSE 100 MG/DL (70-104); MAGNESIUM 2.1 MG/DL (1.5-2.4); POTASSIUM 4.6 MMOL/L (3.5-5.1); SODIUM 143 MMOL/L (135-145); TOTAL CARBON DIOXIDE 27.5 MMOL/L (24-32); TOTAL PROTEIN 7.3 G/DL (6.4-8.2); eGFR 72 ML/MIN
[2022-01-11] MEDS: multivitamins, therapeutics tablet PO SCH (08:00)
[2022-01-11] MEDS: enoxaparin 40mg/0.4ml syringe SUBCUT SCH (08:00)
[2022-01-11] MEDS: docusate sod 100mg capsule PO SCH (08:00)
[2022-01-11] MEDS: K and/or MAG REPLACEMENT MC SCH (08:00)
[2022-01-11] MEDS: omega-3 acid ethyl esters 1GM capsule PO SCH (08:00)
[2022-01-11] MEDS: lisinopril 10 MG tablet PO SCH (08:54)
[2022-01-11] MEDS: cefTRIAXone 1g/NS 100ml IVPB 100 ML IV SCH (08:55)
[2022-01-11] MEDS ORDERED: regadenoson 0.4mg/5ml syringe IV ONE (09:55)
[2022-01-11] MEDS ORDERED: aminophylline 500mg/20ml vial ONE (09:58)
--- NOTE | 2022-01-11 11:53 | NUR ---
Although patient is NPO she had her get tacos for her. She is sure she will be discharged after the alexandr comes back.
[2022-01-11] MEDS ORDERED: AZIT500T9 PO (12:34)
== END 2022-01-11 13:30 | disposition home or self-care (01) | DRG 195 ==
LOC: ER 08:26 → EEVIPCON 08:26 → ED HOLD 10:17 → EDBEDREQ 20:21 → PCU 3S 21:09
PROVIDERS: ADMIT Internal Medicine; ATTEND Internal Medicine
PROC: 4A02XM4 Measurement of Cardiac Total Activity, External Approach (ICD-10-PCS; principal; 2022-01-11)
PROC: 3E033HZ Introduction of Radioactive Substance into Peripheral Vein, Percutaneous Approach (ICD-10-PCS; 2022-01-11)
DX: J18.9 Pneumonia, unspecified organism (principal); I10 Essential (primary) hypertension; Z90.710 Acquired absence of both cervix and uterus; Z79.899 Other long term (current) drug therapy; Z79.82 Long term (current) use of aspirin
CPT/HCPCS: 36415; 71046; 78452; 80053; 80061; 83036; 83605; 83735; 83880; 84145; 84484; 85025; 87040; 87081; 93005; 93017; 93306; 99285; A9500; G0378; J0280; J0696; J1100; J1650; J2785

== ENCOUNTER 2022-07-15 07:19 | Outpatient (CLI) | payer BC, MEDICARE ==
[~2022-07-15 07:19] MED LIST changes: -ASPI-611 PO; +AZIT500T9 PO; -GABA-530 PO; -HYDR-4383 PO
[2022-07-15 08:19] LABS: HEMOGLOBIN A1C 6.8 % (4.5-6.2)
[2022-07-15 08:23] LABS: ALANINE AMINOTRANSFERASE 72 U/L (12-78); ALBUMIN/GLOBULIN RATIO 1.1 (1.1-1.5); ALKALINE PHOSPHATASE 61 IU/L (46-116); ANION GAP 7 (8-16); ASPARTATE AMINO TRANSFERASE 31 U/L (10-37); BILIRUBIN,TOTAL 0.6 MG/DL (0.1-1.0); BLOOD UREA NITROGEN 15 MG/DL (7-18); BUN/CREATININE RATIO 16.7 (6.6-38.0); CALCIUM 9.3 MG/DL (8.5-10.1); CHLORIDE 104 MMOL/L (99-107); CHOL/HDL RATIO 3.6 (0.00-4.99); CHOLESTEROL 175 MG/DL (0-200); GLUCOSE 166 MG/DL (70-104); HDL CHOLESTEROL 49 MG/DL (35-60); LDL CHOLESTEROL 98 MG/DL (50-100); POTASSIUM 4.6 MMOL/L (3.5-5.1); SODIUM 141 MMOL/L (135-145); TOTAL CARBON DIOXIDE 30.2 MMOL/L (24-32); TOTAL PROTEIN 7.7 G/DL (6.4-8.2); TRIGLYCERIDES 172 MG/DL (20-135); eGFR 62 ML/MIN
== END 2022-07-15 23:59 | disposition home or self-care (01) ==
LOC: LAB 07:19
PROVIDERS: ATTEND Nurse Practitioner Family
DX: E11.9 Type 2 diabetes mellitus without complications (principal); I10 Essential (primary) hypertension; E78.00 Pure hypercholesterolemia, unspecified
CPT/HCPCS: 36415; 80053; 80061; 82607; 83036

== ENCOUNTER 2023-03-02 10:09 | Outpatient (CLI) | payer BC, MEDICARE ==
[2023-03-02 10:56] LABS: HEMOGLOBIN A1C 7.3 % (4.5-6.2)
[2023-03-02 11:09] LABS: ALANINE AMINOTRANSFERASE 57 U/L (12-78); ALBUMIN 3.9 G/DL (3.4-5.0); ALBUMIN/GLOBULIN RATIO 1.2 (1.1-1.5); ALKALINE PHOSPHATASE 59 IU/L (46-116); ANION GAP 7 (8-16); ASPARTATE AMINO TRANSFERASE 28 U/L (10-37); BILIRUBIN,TOTAL 0.5 MG/DL (0.1-1.0); BLOOD UREA NITROGEN 16 MG/DL (7-18); BUN/CREATININE RATIO 18.6 (10.0-20.0); CALCIUM 9.1 MG/DL (8.5-10.1); CHLORIDE 105 MMOL/L (99-107); CHOL/HDL RATIO 3.5 (0.00-4.99); CHOLESTEROL 163 MG/DL (0-200); CREATININE 0.86 MG/DL (0.40-0.90); GLUCOSE 157 MG/DL (70-104); HDL CHOLESTEROL 47 MG/DL (35-60); LDL CHOLESTEROL 93 MG/DL (50-100); POTASSIUM 4.4 MMOL/L (3.5-5.1); SODIUM 139 MMOL/L (135-145); TOTAL CARBON DIOXIDE 27.1 MMOL/L (24-32); TOTAL PROTEIN 7.2 G/DL (6.4-8.2); TRIGLYCERIDES 98 MG/DL (20-135); eGFR 66 ML/MIN
== END 2023-03-02 23:59 | disposition home or self-care (01) ==
LOC: LAB 10:09
PROVIDERS: ATTEND Nurse Practitioner Family
DX: E11.65 Type 2 diabetes mellitus with hyperglycemia (principal); E78.00 Pure hypercholesterolemia, unspecified
CPT/HCPCS: 36415; 80053; 80061; 83036

== ENCOUNTER 2023-08-31 08:45 | Outpatient (CLI) | payer BC, MEDICARE | END 2023-08-31 23:59 | disposition home or self-care (01) | LOC: LAB 08:45 | PROVIDERS: ATTEND Family Medicine | DX: E11.9 Type 2 diabetes mellitus without complications (principal) | CPT/HCPCS: 36415; 83036 ==

== ENCOUNTER 2024-02-23 12:40 | Outpatient (CLI) | payer BC, MEDICARE | END 2024-02-23 23:59 | disposition home or self-care (01) | LOC: LAB 12:40 | PROVIDERS: ATTEND Family Medicine | DX: E11.65 Type 2 diabetes mellitus with hyperglycemia (principal); E78.00 Pure hypercholesterolemia, unspecified; R53.83 Other fatigue | CPT/HCPCS: 36415; 83036 ==

== ENCOUNTER 2024-05-31 14:46 | Outpatient (CLI) | payer BC, MEDICARE | END 2024-05-31 23:59 | disposition home or self-care (01) | LOC: MRI 14:46 | PROVIDERS: ATTEND Nurse Practitioner Family | DX: M19.011 Primary osteoarthritis, right shoulder (principal); M75.51 Bursitis of right shoulder; M25.571 Pain in right ankle and joints of right foot | CPT/HCPCS: 73221 ==

== ENCOUNTER 2024-09-03 11:00 | Emergency (ER) | payer MEDICARE, OTHER ==
[~2024-09-03] VITALS: Ht 162.6 cm; Wt 68.2 kg
[2024-09-03 11:58] LABS: BASOPHILS % (AUTO) 0.9 % (0-1); EOSINOPHILS # (AUTO) 0.1 X10'3 (0-0.9); EOSINOPHILS % (AUTO) 1.7 % (0-6); HEMATOCRIT 43.2 % (35.0-45.0); HEMOGLOBIN 14.8 g/dl (12.0-16.0); LYMPHOCYTES % (AUTO) 37.8 % (21-51); MEAN CORPUSCULAR HEMOGLOBIN 32.8 PG (27.0-31.0); MEAN CORPUSCULAR HGB CONC 34.2 g/dL (33.0-36.5); MEAN CORPUSCULAR VOLUME 95.7 FL (78-98); MEAN PLATELET VOLUME 9.2 FL (7.4-10.4); MONOCYTES # (AUTO) 0.4 X10'3 (0-0.9); MONOCYTES % (AUTO) 7.9 % (2-12); NEUTROPHILS # (AUTO) 2.7 X10'3 (1.8-7.7); NEUTROPHILS % (AUTO) 51.7 % (42-75); PLATELET COUNT 191 X10'3 (140-440); RED BLOOD COUNT 4.51 X10'6 (4.20-5.60); RED CELL DISTRIBUTION WIDTH 12.9 % (11.5-14.5); WHITE BLOOD COUNT 5.2 X10'3 (4.5-11.0)
[2024-09-03 12:19] LABS: ALANINE AMINOTRANSFERASE 53 U/L (12-78); ALBUMIN 3.6 G/DL (3.4-5.0); ALKALINE PHOSPHATASE 51 IU/L (46-116); ANION GAP 7 (8-16); ASPARTATE AMINO TRANSFERASE 23 U/L (10-37); BILIRUBIN,TOTAL 0.5 MG/DL (0.1-1.0); BLOOD UREA NITROGEN 12 MG/DL (7-18); BUN/CREATININE RATIO 15.2 (10.0-20.0); CHLORIDE 105 MMOL/L (99-107); CREATININE 0.79 MG/DL (0.40-0.90); GLUCOSE 221 MG/DL (70-104); POTASSIUM 4.3 MMOL/L (3.5-5.1); SODIUM 138 MMOL/L (135-145); TOTAL CARBON DIOXIDE 25.9 MMOL/L (24-32); TOTAL PROTEIN 7.3 G/DL (6.4-8.2); eCRCL 58 ML/MIN; eGFR 72 ML/MIN
[2024-09-03 12:23] LABS: PRO BRAIN NATRIURETIC PEPTIDE < 30 PG/ML (0-125)
[2024-09-03] MEDS: LIDOcaine 2% Viscous 15ml cup MM PRN (13:25)
[2024-09-03] MEDS: sucralfate 1 gm tablet PO ONE (13:25)
[2024-09-03] MEDS: mag hydrox/Alum hydrox/simeth 30ml oral suspension PO ONE (13:26)
[2024-09-03] MEDS: pantoprazole 40mg Tablet.DR PO SCH (13:33)
[2024-09-03 16:05] VITALS: BP 143/78; PULSE 74; RESP 16; TEMP 98.6; O2SAT 100
[2024-09-04] MEDS ORDERED: pantoprazole 40mg Tablet.DR PO SCH (07:30)
== END 2024-09-03 16:11 | disposition home or self-care (01) ==
LOC: ER 11:00
DX: R07.89 Other chest pain (principal); I10 Essential (primary) hypertension; Z90.710 Acquired absence of both cervix and uterus; Z79.899 Other long term (current) drug therapy; Z72.89 Other problems related to lifestyle; Z98.890 Other specified postprocedural states
CPT/HCPCS: 36415; 71045; 80053; 83880; 84484; 85025; 93005; 99285; A6258; Z7610